=== PATIENT | male | born 1945 | race Caucasian/White ===

== ENCOUNTER 2016-06-02 07:47 | Day surgery (SDC) | payer MEDICARE, OTHER ==
[2016-06-02] VITALS (9 sets, daily range): BP systolic 115–145; BP diastolic 71–83; PULSE 54–84; TEMP 97.9
[~2016-06-02] VITALS: Ht 180.3 cm; Wt 84.0 kg
[~2016-06-02 07:47] MED LIST: ALLEGRA ALLERG180 MG PO; ASPIRIN 81M81 MG/TA2 PO; CYANOJECT1000 MCG/M IM; FISH OIL500 MG PO; GLUCOSAMINE500 M1 PO; MEVACOR40 MG PO; MULTIPLE VITAMI1 CAP PO; PRIL40 PO; VITAMIN D50000 I2 PO; [UNRECOGNIZED DRUG - OTHER] PO
[2016-06-02] MEDS ORDERED: VITAMINC1000TA PO (08:48)
[2016-06-02 08:49] LABS: HEMATOCRIT 37.6 % (42.0-52.0); MEAN CELL VOLUME 86 fl (80.0-100.0); MEAN CORPUSCULAR HEMOGLOBIN 27 pg (27.0-31.0); MEAN CORPUSCULAR HGB CONC 32 g/dl (33.0-37.0); MEAN PLATELET VOLUME 10.3 fl (7.4-10.4); PLATELET COUNT 202 K/mm3 (130-400); REDCELL DISTRIBUTION WIDTH-CV 14.4 % (11.5-14.5); WHITE BLOOD COUNT 5.2 K/mm3 (4.8-10.8)
[2016-06-02] MEDS ORDERED: VITAMIND3 5000 PO (08:49)
[2016-06-02] MEDS ORDERED: VASOTEC 5MG5 MG/TAB PO (08:50)
[2016-06-02] MEDS ORDERED: FISH OIL 500 M1 EAC1 PO (08:51)
[2016-06-02] MEDS ORDERED: GLUCOSAMIN 500 PO (08:52)
[2016-06-02] MEDS ORDERED: MIDRIN 325 MG-11 CAP PO (08:55)
[2016-06-02 08:56] LABS: PROTHROMBIN TIME 10.6 SECONDS (9.7-12.8)
[2016-06-02] MEDS ORDERED: PHARMASSURE SA160 MG PO (08:57)
[2016-06-02] MEDS ORDERED: CIALIS10 MG PO (08:58)
[2016-06-02 08:59] LABS: CALCIUM 9.1 mg/dL (8.4-10.2); CREATININE, serum 1.21 mg/dL (0.66-1.25); POTASSIUM 4.1 mmol/L (3.4-5.0)
== END 2016-06-02 14:36 | disposition home or self-care (01) ==
LOC: COL.RAD 07:47
PROVIDERS: Internal Medicine Cardiovascular Disease
DX: I05.9 Rheumatic mitral valve disease, unspecified (principal); R06.00 Dyspnea, unspecified; E78.2 Mixed hyperlipidemia; R01.1 Cardiac murmur, unspecified; Z87.891 Personal history of nicotine dependence
CPT/HCPCS: C1769; C1887; C1894; J1644; J2250; J2704; J3010; Q9967

== ENCOUNTER → 2017-02-15 | Outpatient (REF) ==
[~2017-02-15] MED LIST changes: +CIALIS10 MG PO; +FISH OIL 500 M1 EAC1 PO; +GLUCOSAMIN 500 PO; +MIDRIN 325 MG-11 CAP PO; +PHARMASSURE SA160 MG PO; +VASOTEC 5MG5 MG/TAB PO; +VITAMINC1000TA PO; +VITAMIND3 5000 PO
[2017-02-15 18:54] LABS: PSA-TOTAL 1.16 ng/mL (0-4); THYROID STIMULATING HORMONE 1.94 uIU/mL (0.465-4.680)
== END ==
LOC: ZLAB.WCH 18:03
PROVIDERS: Internal Medicine
DX: Z01.89 Encounter for other specified special examinations (principal)
CPT/HCPCS: G0103

== ENCOUNTER → 2018-03-21 | Outpatient (REF) ==
[2018-03-21 19:55] LABS: PSA-TOTAL 1.14 ng/mL (0-4)
[2018-03-21 20:34] LABS: THYROID STIMULATING HORMONE 1.56 uIU/mL (0.465-4.680)
== END ==
LOC: ZLAB.WCH 18:39
PROVIDERS: Internal Medicine
DX: Z01.89 Encounter for other specified special examinations (principal)
CPT/HCPCS: G0103

== ENCOUNTER 2018-04-20 06:45 | Day surgery (SDC) | payer MEDICARE, OTHER ==
[~2018-04-20] VITALS: Ht 180.3 cm; Wt 86.0 kg
[~2018-04-20 06:45] MED LIST changes: +CYANOCOBAL1000 MCG/M IM; -CYANOJECT1000 MCG/M IM
[2018-04-20 07:22] LABS: HEMATOCRIT 38.4 % (42.0-52.0); HEMOGLOBIN 12.2 g/dl (13.5-18.0); MEAN CELL VOLUME 86 fl (80.0-100.0); MEAN CORPUSCULAR HEMOGLOBIN 27 pg (27.0-31.0); MEAN CORPUSCULAR HGB CONC 32 g/dl (33.0-37.0); MEAN PLATELET VOLUME 9.9 fl (7.4-10.4); PLATELET COUNT 240 K/mm3 (130-400); RED BLOOD COUNT 4.49 M/mm3 (4.20-5.60); REDCELL DISTRIBUTION WIDTH-CV 14.4 % (11.5-14.5)
[2018-04-20 07:32] LABS: INR 0.9 (0.8-3.0); PROTHROMBIN TIME 10.7 SECONDS (9.7-12.8)
[2018-04-20 07:34] LABS: CALCIUM 9.3 mg/dL (8.4-10.2); CREATININE, serum 1.17 mg/dL (0.66-1.25)
[2018-04-20] MEDS ORDERED: COZAAR 25MG25 MG/TAB PO (08:29)
[2018-04-20] MEDS ORDERED: ADVIL MIGRAINE200 MG PO (08:33)
[2018-04-20 08:44] VITALS: BP 136/89; PULSE 63; TEMP 97.2
[2018-04-20 08:49] VITALS: BP 128/87; PULSE 66
[2018-04-20 09:30] VITALS: BP 121/74; PULSE 72
--- NOTE | 2018-04-20 09:30 | NUR ---
Pt returned to [facility] 14 per bed s/p AMRITA only. Pt resting well, friend Cary at bedside.
[2018-04-20 09:45] VITALS: BP 122/81; PULSE 75
[2018-04-20 10:00] VITALS: BP 126/82; PULSE 71
[2018-04-20 10:15] VITALS: BP 124/75; PULSE 63; TEMP 96.6
--- NOTE | 2018-04-20 10:20 | NUR ---
Pt has ambulated and sarahi PO intake s n/v. PIV removed with catheter intact.
--- NOTE | 2018-04-20 10:35 | NUR ---
Pt discharged per w/c by nurse with friend Cary.
== END 2018-04-20 11:01 | disposition home or self-care (01) ==
LOC: COL.CAR 06:45
PROVIDERS: Internal Medicine Cardiovascular Disease
DX: I48.0 Paroxysmal atrial fibrillation (principal); I08.3 Combined rheumatic disorders of mitral, aortic and tricuspid valves; Z88.0 Allergy status to penicillin; Z79.899 Other long term (current) drug therapy; Z79.82 Long term (current) use of aspirin; Z87.891 Personal history of nicotine dependence; E78.2 Mixed hyperlipidemia; K21.9 Gastro-esophageal reflux disease without esophagitis; G43.909 Migraine, unspecified, not intractable, without status migrainosus
CPT/HCPCS: J2704; J7120

== ENCOUNTER → 2021-05-25 | Outpatient (CLI) | payer MEDICARE, OTHER ==
[~2021-05-25] MED LIST changes: +ADVIL MIGRAINE200 MG PO; +COZAAR 25MG25 MG/TAB PO
== END ==
LOC: COL.PUL 07:21
DX: R06.00 Dyspnea, unspecified (principal); Z87.891 Personal history of nicotine dependence